=== PATIENT | male | born 1995 | race Caucasian/White ===

== ENCOUNTER 2020-04-16 20:53 | Emergency (ER) | payer OTHER, SELFPAY ==
[2020-04-16 20:56] VITALS: BP 140/85; PULSE 78; RESP 18; TEMP 36.7; O2SAT 98; BMI 20.9
[2020-04-16 21:27] VITALS: BP 129/84; PULSE 73; RESP 20; TEMP 36.6; O2SAT 99
--- NOTE | 2020-04-16 21:46 | ED.ALLEREA ---
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 At this time patient not complaining of any rash itching throat swelling lip swelling or shortness of breath patient came in to just to be sure that he does not get allergic reaction. Patient's sibling has allergic reaction to nuts also Related Data Previous Rx's Medication Instructions Recorded epinephrine [EpiPen] 0.3 mg IM Q10M PRN #2 ea 04/16/20 Allergies Allergy/AdvReac Type Severity Reaction Status Date / Time No Known Allergies Allergy Verified 04/16/20 20:56 [No Known Allergies*] Review of Systems Review of Systems: Yes all other systems are reviewed and are negative [facility] Social History Social History Advance Directives: No Advance Directives Information Provided: No Physical Exam Vital Signs: Vital Signs: Last Vital Signs Temp 97.8 F 04/16/20 21:27 Pulse 73 04/16/20 21:27 Resp 20 04/16/20 21:27 BP 129/84 04/16/20 21:27 Pulse Ox 99 04/16/20 21:27 Body Mass Index 20.9 Appearance: Alert. Oriented X3. No acute distress. Eyes: Pupils equal, round and reactive to light. ENT: Pharynx normal. Lips and tongue normal Neck: Normal inspection. Neck supple. CVS: Normal heart rate and rhythm. Pulses normal. Respiratory: No respiratory distress. Breath sounds normal. Abdomen: Soft and nontender. Bowel sounds are present, no mass palpable, no CVA tenderness Skin: Skin warm and dry. Normal skin color. Normal skin turgor. No skin rash Extremities: No lower extremity edema. Neuro: Oriented X 3. No motor deficit. No sensory deficit. Discharge Plan Discharge Clinical Impression: Allergic reaction Qualifiers: Encounter type: initial encounter Qualified Code(s): T78.40XA - Allergy, unspecified, initial encounter Patient Disposition: Home, Self-Care Instructions: Allergies (ED) Additional Instructions: No signs of allergic reaction notice in the ER. Have EpiPen at home. Take EpiPen if any difficulty in breathing swelling of the tongue or throat pain or rash and come to the ER Follow-up with your PCP for further allergic testing Prescriptions: New epinephrine [EpiPen] 0.3 mg/0.3 mL auto-injector 0.3 mg IM Q10M PRN (Reason: anaphylaxis) Qty: 2 RF: 0
== END 2020-04-16 22:34 | disposition home or self-care (01) ==
LOC: HO.ED 21:49
PROVIDERS: Emergency Provider Internal Medicine
DX: L23.9 Allergic contact dermatitis, unspecified cause (principal); Z79.899 Other long term (current) drug therapy
CPT/HCPCS: 99283; 99284